=== PATIENT | male | born 1940 | race Caucasian/White ===

== ENCOUNTER 2017-03-01 13:10 | Emergency (ER) | payer OTHER, MEDICAID ==
[2017-03-01 18:56] VITALS: BP 136/78
== END 2017-03-01 18:56 | disposition home or self-care (01) ==
LOC: ED 13:10
DX: J06.9 Acute upper respiratory infection, unspecified (principal); I10 Essential (primary) hypertension; E78.00 Pure hypercholesterolemia, unspecified; Z88.5 Allergy status to narcotic agent
CPT/HCPCS: 87804; J7512; J7613

== ENCOUNTER 2017-12-18 10:05 | Emergency (ER) | payer OTHER, MEDICAID ==
[~2017-12-18] VITALS: Ht 177.8 cm; Wt 86.2 kg
[2017-12-18 10:09] VITALS: Ht 177.8 cm; Wt 86.2 kg
[2017-12-18 11:16] LABS: CALCIUM 9.6 mg/dL (8.5-10.1); CARBON DIOXIDE 24.7 mmol/L (21-32); CHLORIDE SERUM 106 mmol/L (98-107); CREATININE SERUM 1.4 mg/dL (0.7-1.3); GLUCOSE SERUM 209 mg/dL (74-106); SODIUM SERUM 141 mmol/L (136-145)
[2017-12-18 11:21] LABS: ALKALINE PHOSPHATASE 128 U/L (46-116); ALT/SGPT 34 U/L (16-63); AST/SGOT 44 U/L (15-37); BILIRUBIN TOTAL 0.79 mg/dL (0.20-1.00); LIPASE 141 IU/L (73-393); TOTAL PROTEIN, SERUM 7.8 g/dL (6.4-8.2)
[2017-12-18 13:36] VITALS: BP 125/66
[2017-12-18 14:31] LABS: BASOPHIL % 0.3 % (0-2); PLATELET COUNT 154 x10^3mcL (130-400); RED CELL DISTRIBUTION WIDTH 14.2 % (11.5-14.5)
== END 2017-12-18 13:36 | disposition short-term general hospital (02) ==
LOC: ED 10:05
PROVIDERS: Emergency Medicine
DX: T82.330A Leakage of aortic (bifurcation) graft (replacement), initial encounter (principal); N20.0 Calculus of kidney; I10 Essential (primary) hypertension; E78.00 Pure hypercholesterolemia, unspecified; Z95.828 Presence of other vascular implants and grafts; Z88.5 Allergy status to narcotic agent
CPT/HCPCS: J0696; J2405; J2550; J3010; Q0092; Q9967

== ENCOUNTER 2017-12-24 21:39 | Emergency (ER) | payer OTHER, MEDICAID ==
[~2017-12-24] VITALS: Ht 180.3 cm; Wt 81.6 kg
[2017-12-24 21:54] VITALS: Ht 180.3 cm; Wt 81.6 kg
[2017-12-24 22:16] LABS: BASOPHIL % 1.1 % (0-2); PLATELET COUNT 232 x10^3mcL (130-400); RED CELL DISTRIBUTION WIDTH 12.7 % (11.5-14.5)
[2017-12-24 22:26] LABS: ALBUMIN 3.8 g/dL (3.4-5.0); ALKALINE PHOSPHATASE 215 U/L (46-116); ALT/SGPT 89 U/L (16-63); AST/SGOT 62 U/L (15-37); BILIRUBIN TOTAL 1.4 mg/dL (0.20-1.00); CALCIUM 9.6 mg/dL (8.5-10.1); CARBON DIOXIDE 23.4 mmol/L (21-32); CHLORIDE SERUM 91 mmol/L (98-107); CREATININE SERUM 2.1 mg/dL (0.7-1.3); GLUCOSE SERUM 177 mg/dL (74-106); POTASSIUM SERUM 3.8 mmol/L (3.5-5.1); SODIUM SERUM 127 mmol/L (136-145)
[2017-12-24 22:29] LABS: TOTAL PROTEIN, SERUM 9.1 g/dL (6.4-8.2)
[2017-12-25 00:10] LABS: microscopic required? YES; urine erythrocyte TRACE (NEGATIVE)
[2017-12-25 01:32] VITALS: BP 133/61
== END 2017-12-25 01:32 | disposition home or self-care (01) ==
LOC: ED 21:39
PROVIDERS: Emergency Medicine
DX: N39.0 Urinary tract infection, site not specified (principal); I10 Essential (primary) hypertension; E78.00 Pure hypercholesterolemia, unspecified; Z87.442 Personal history of urinary calculi; Z98.890 Other specified postprocedural states; Z95.828 Presence of other vascular implants and grafts; Z88.6 Allergy status to analgesic agent
CPT/HCPCS: 87804; J0696; J7030; Q0092

== ENCOUNTER 2018-01-19 16:32 | Emergency (ER) | payer OTHER, MEDICAID ==
[~2018-01-19] VITALS: Ht 180.3 cm; Wt 95.3 kg
[2018-01-19 16:34] VITALS: BP 113/67; Ht 180.3 cm; Wt 95.3 kg
[2018-01-19 17:41] LABS: BASOPHIL % 0.2 % (0-2); PLATELET COUNT 150 x10^3mcL (130-400)
[2018-01-19 17:45] LABS: RED CELL DISTRIBUTION WIDTH 14.9 % (11.5-14.5)
[2018-01-19 18:13] LABS: ALKALINE PHOSPHATASE 191 U/L (46-116); ALT/SGPT 62 U/L (16-63); AST/SGOT 35 U/L (15-37); BILIRUBIN TOTAL 0.73 mg/dL (0.20-1.00); CALCIUM 9.5 mg/dL (8.5-10.1); CARBON DIOXIDE 23.8 mmol/L (21-32); CHLORIDE SERUM 100 mmol/L (98-107); CREATININE SERUM 1.3 mg/dL (0.7-1.3); GLUCOSE SERUM 153 mg/dL (74-106); POTASSIUM SERUM 4.7 mmol/L (3.5-5.1); SODIUM SERUM 135 mmol/L (136-145); TOTAL PROTEIN, SERUM 8.9 g/dL (6.4-8.2)
== END 2018-01-19 18:03 | disposition short-term general hospital (02) ==
LOC: ED 16:32
PROVIDERS: Emergency Medicine
DX: T82.330A Leakage of aortic (bifurcation) graft (replacement), initial encounter (principal); I10 Essential (primary) hypertension; E78.00 Pure hypercholesterolemia, unspecified; Z95.5 Presence of coronary angioplasty implant and graft; Z87.74 Personal history of (corrected) congenital malformations of heart and circulatory system; Z88.5 Allergy status to narcotic agent
CPT/HCPCS: 82962; J1644; Q0092

== ENCOUNTER 2019-02-02 11:28 | Emergency (ER) | payer OTHER, MEDICAID ==
[~2019-02-02] VITALS: Ht 180.3 cm; Wt 85.3 kg
[2019-02-02 11:34] VITALS: Ht 180.3 cm; Wt 85.3 kg
[2019-02-02 12:02] LABS: BASOPHIL % 0.3 % (0-2); PLATELET COUNT 172 x10^3mcL (130-400)
[2019-02-02 12:27] LABS: RED CELL DISTRIBUTION WIDTH 14.7 % (11.5-14.5)
[2019-02-02 13:31] LABS: CHLORIDE SERUM 104 mmol/L (98-107); POTASSIUM SERUM 4.4 mmol/L (3.5-5.1); SODIUM SERUM 140 mmol/L (136-145)
[2019-02-02 13:32] LABS: BILIRUBIN TOTAL 0.6 mg/dL (0.20-1.00); CARBON DIOXIDE 25 mmol/L (21-32); TOTAL PROTEIN, SERUM 8.1 g/dL (6.4-8.2)
[2019-02-02 14:10] VITALS: BP 129/57
[2019-02-02 14:34] LABS: ALBUMIN 4.2 g/dL (3.4-5.0); AST/SGOT 19 U/L (15-37); CALCIUM 9.6 mg/dL (8.5-10.1); CREATININE SERUM 1.1 mg/dL (0.7-1.3); GLUCOSE SERUM 182 mg/dL (74-106)
[2019-02-02 14:35] LABS: ALKALINE PHOSPHATASE 129 U/L (46-116); ALT/SGPT 37 U/L (16-63)
== END 2019-02-02 14:10 | disposition home or self-care (01) ==
LOC: ED 11:28
PROVIDERS: Emergency Medicine
DX: N20.0 Calculus of kidney (principal); I10 Essential (primary) hypertension; E78.00 Pure hypercholesterolemia, unspecified; Z88.5 Allergy status to narcotic agent
CPT/HCPCS: J1885; J2405